=== PATIENT | female | born 1950 | race Asian ===

== ENCOUNTER 2019-07-04 03:36 | Emergency (ER) | payer OTHER ==
[~2019-07-04] VITALS: Ht 167.6 cm; Wt 72.6 kg
[2019-07-04 04:32] LABS: PLATELET COUNT 204 K/uL (152-353)
[2019-07-04 05:53] VITALS: BP 174/79; TEMP 98.4
[2019-07-04] MEDS ORDERED: CARV3.12 PO (10:13)
[2019-07-04] MEDS ORDERED: ABILIFY2 MG PO (10:13)
[2019-07-04] MEDS ORDERED: CELLCEPT500 MG PO (10:14)
[2019-07-04] MEDS ORDERED: CELEXA20 MG PO (10:14)
[2019-07-04] MEDS ORDERED: PRAVACHOL20 MG PO (10:15)
[2019-07-04] MEDS ORDERED: PRED5TAB3 PO (10:16)
[2019-07-04] MEDS ORDERED: RAPAMUNE1 MG PO (10:17)
[2019-07-04] MEDS ORDERED: TRAM50TA PO (10:18)
[2019-07-04] MEDS ORDERED: TYLENOL325 MG PO (10:18)
== END 2019-07-04 05:53 | disposition other institution (70) ==
LOC: ED 03:36
PROVIDERS: Emergency Medicine
DX: F03.91 Unspecified dementia, unspecified severity, with behavioral disturbance (principal); Z04.6 Encounter for general psychiatric examination, requested by authority
CPT/HCPCS: 80053; 85027; 93005; 99283; 99285